=== PATIENT | female | born 1950 | race Caucasian/White ===

== ENCOUNTER 2023-02-24 07:28 | Outpatient (CLI) | payer MEDICARE, OTHER, SELFPAY ==
--- NOTE | 2023-02-24 09:23 | W.ANESCHARGE ---
Anesthesia Charges Start Date/Time Anesthesia Start Date: 02/24/23 Anesthesia Start Time: 09:00 Stop Date/Time Anesthesia Stop Date: 02/24/23 Anesthesia Stop Time: 09:19 Summary Extremes of Age - Over 70 or under 1: [employer]
--- NOTE | 2023-02-24 10:39 | W.ANESCHARGE ---
Anesthesia Charges Start Date/Time Anesthesia Start Date: 02/24/23 Anesthesia Start Time: 09:00 Stop Date/Time Anesthesia Stop Date: 02/24/23 Anesthesia Stop Time: 09:19
--- NOTE | 2023-02-24 10:41 | W.ANESCHARGE ---
Anesthesia Charges Start Date/Time Anesthesia Start Date: 02/24/23 Anesthesia Start Time: 09:00 Stop Date/Time Anesthesia Stop Date: 02/24/23 Anesthesia Stop Time: 09:19 Summary Extremes of Age - Over 70 or under 1: MDA
== END 2023-02-24 07:29 | disposition home or self-care (01) ==
PROVIDERS: PCP Family Medicine; Visit Provider Internal Medicine Gastroenterology
DX: Z12.11 Encounter for screening for malignant neoplasm of colon (principal); Z86.010 Personal history of colon polyps
CPT/HCPCS: 00812; 45378; 99100; J2704